=== PATIENT | male | born 1985 | race Native Hawaiian/Other Pacific Islander ===

== ENCOUNTER 2016-11-14 10:22 | Observation (INO) | payer OTHER ==
--- NOTE | 2016-11-14 11:05 | C.PDOC ---
History Of Present Illness 30 yr old male presents to the ER for removal of his T-tube which was placed [address] Fidel Bates. Patient reports history of appendectomy surgery. Patient states he spoke to someone upstairs named "Soumya" who suggested to come to the ED for removal. Patient reports he was on antibiotics but never on any pain medications. Patient denies any signs of infection, erythema, discharge from the tube site. Denies fever, chest pain, SOB, nausea, vomiting, abdominal pain, diarrhea, dysuria, back pain, weakness or numbness. Time Seen by Provider: 11/14/16 10:35 Chief Complaint (Nursing): Medical Clearance History Per: Patient History/Exam Limitations: no limitations Onset/Duration Of Symptoms: Other (T-tube placed 5 weeks ago) Current Symptoms Are (Timing): Still Present Past Medical History Reviewed: Historical Data, Nursing Documentation, Vital Signs Vital Signs: Last Vital Signs Temp 97.8 F 11/14/16 13:59 Pulse 80 11/14/16 13:59 Resp 18 11/14/16 13:59 BP 112/75 11/14/16 13:59 Pulse Ox 99 11/14/16 13:59 - Medical History PMH: Gall Bladder Disease Surgical History: Appendectomy (more than 10 years ago) - [facility] Procedures DRAINAGE OF GALLBLADDER WITH DRAINAGE DEVICE, PERC APPROACH (10/09/16) Family History: States: No Known Family Hx - Social History Hx Alcohol Use: Yes Hx Substance Use: No Review Of Systems Except As Marked, All Systems Reviewed And Found Negative. Constitutional: Negative for: Fever Cardiovascular: Negative for: Chest Pain Respiratory: Negative for: Shortness of Breath Gastrointestinal: Positive for: Other (T-Tube present). Negative for: Nausea, Vomiting, Abdominal Pain, Diarrhea Genitourinary: Negative for: Dysuria Musculoskeletal: Negative for: Back Pain Neurological: Negative for: Weakness, Numbness Physical Exam - Physical Exam Appears: Non-toxic, No Acute Distress Skin: Warm, Dry, No Rash Head: Atraumatic, Normacephalic Cardiovascular: Rhythm Regular, No Murmur Respiratory: Normal Breath Sounds, No Rales, No Rhonchi, No Stridor, No Wheezing Gastrointestinal/Abdominal: Normal Exam, Soft, No Tenderness, No Guarding, No Rebound, Other (T-Tube site - Dressing is clean, dry and in intact.) Extremity: Normal ROM Neurological/Psych: Oriented x3, Normal Speech, Normal Motor ED Course And Treatment O2 Sat by Pulse Oximetry: 96 Medical Decision Making Medical Decision Making: Case discussed with dr Bates, he will be in to evaluate tube in IR Pt made aware of this Post procedure, showing multiple stones still present, tube left in and pt refered to GI by dr Bates Pt stable for discharge Disposition - Disposition Disposition: HOME/ ROUTINE Disposition Time: 13:16 Condition: GOOD - Clinical Impression Clinical Impression: Medical assessment - Scribe Statement The provider has reviewed the documentation as recorded by the Andre Adan Provider Attestation: All medical record entries made by the Rashelibradha were at my direction and personally dictated by me. I have reviewed the chart and agree that the record accurately reflects my personal performance of the history, physical exam, medical decision making, and the department course for this patient. I have also personally directed, reviewed, and agree with the discharge instructions and disposition.
--- NOTE | 2016-11-14 12:36 | PCM.SURG1 ---
Surgeon's Initial Post Op Note - Surgeon's Notes Surgeon: Fidel Bates MD Dielectric Testing Machine Operator: None Type of Anesthesia: None Pre-Operative Diagnosis: Cholecystitis, cholelithiasis. Operative Findings: CHolestogram performed through cholecystostomy tube showed significant GB stones. There is flow into the CBD. A round filling defect in the distal CBD is believed to be a gallstone. It is not completely obstructive. Post-Operative Diagnosis: Cholelithiasis. Operation Performed: Cholecystostogram. Specimen/Specimens Removed: Bile aspirated at end of procedure. Estimated Blood Loss: EBL {In ML}: 0 Drains Used: No Drains, Jamie Rodriguez Post-Op Condition: Fair Date of Surgery/Procedure: 11/14/16 Time of Surgery/Procedure: 12:30
[2016-11-14 14:01] VITALS: BP 112/75; PULSE 80; RESP 18; TEMP 97.8
[2016-11-16 12:22] VITALS: O2SAT 96
== END 2016-11-14 13:19 | disposition home or self-care (01) ==
LOC: C.ER 10:22 → C.9OBSV 12:05
PROVIDERS: ADMIT Emergency Medicine; ATTEND Emergency Medicine
DX: K80.10 Calculus of gallbladder with chronic cholecystitis without obstruction (principal)
CPT/HCPCS: 74290; 99282; G0378

== ENCOUNTER 2016-12-08 07:50 | Day surgery (SDC) | payer OTHER ==
[2016-12-08] MEDS ORDERED: Indomethacin 50 MG Suppository PR ONE (09:16)
[2016-12-08] MEDS ORDERED: Glucagon Recombinant 1 mg Inj ONE (09:17)
[2016-12-08] MEDS ORDERED: Iohexol 240 (50 ml) ONE (09:18)
[2016-12-08 09:21] VITALS: BMI 37.0
[2016-12-08] MEDS ORDERED: cefTRIAXone IV 1 gm in Dextros 50 ML IVPB ONE (10:08)
[2016-12-08] MEDS ORDERED: Succinylcholine Chloride 20 mg/ml Syr (5 ml) IV ONE (10:39)
[2016-12-08] MEDS ORDERED: Rocuronium 10 mg/ml (5 ml) ONE (10:39)
[2016-12-08] MEDS ORDERED: cefTRIAXone (Rocephin) 1 gm Inj IVPB ONE (10:49)
--- NOTE | 2016-12-08 12:20 | CP.SDSHP ---
Same Day Surgery H & P - History Proposed Procedure: ERCP Pre-Op Diagnosis: Choledocholithiasis - Previous Medical/Surgical History Endocrine/Metabolic: Obesity Previous Surgical History: Cholecystostomy tube - Allergies Allergies: Allergies No Known Allergies Allergy (Verified 11/14/16 10:45) - Physical Exam General Appearance: nl Vital Signs: Vital Signs 12/08/16 12/08/16 12/08/16 09:23 10:29 11:18 Temperature 98.9 F 99 F 99 F Pulse Rate 100 H 109 H 105 H Respiratory 20 13 13 Rate Blood Pressure 138/88 120/77 121/72 O2 Sat by Pulse 98 98 99 Oximetry Mental Status: Alert & Oriented x3 Neuro: WNL Heart: WNL Lungs: WNL GI: WNL - {Optional Preform as Required} Abdomen: WNL - Impression Impression: choledocholithiasis Pt. Evaluated Today:Candidate for Anesthesia & Procedure: Yes - Date & Time Date: 12/08/16 Time: 12:19 Short Stay Discharge - Short Stay Discharge Admitting Diagnosis/Reason for Visit: CHOLECYSTITIS Disposition: HOME/ ROUTINE
[2016-12-08 12:27] VITALS: TEMP 98.4
[2016-12-08 13:31] VITALS: BP 118/71; PULSE 86; RESP 18; O2SAT 98
--- NOTE | 2016-12-08 16:59 | RAD ---
PROCEDURE: Fluoroscopy up to 1 hr. HISTORY: CBD STONE COMPARISON: None TECHNIQUE: Standard protocol for this study/examination. FINDINGS: Total fluoroscopic time (continuous mode) utilized during the procedure: 54.1 seconds. Submitted images from the current procedure: 5.0 IMPRESSION: Less than 1 hr fluoroscopic time utilized during performance of the procedure.
== END 2016-12-08 13:27 | disposition home or self-care (01) ==
LOC: C.ENDO 07:50
PROVIDERS: ATTEND Internal Medicine
DX: K80.50 Calculus of bile duct without cholangitis or cholecystitis without obstruction (principal); E66.9 Obesity, unspecified; Z68.37 Body mass index [BMI] 37.0-37.9, adult; Z96.89 Presence of other specified functional implants
CPT/HCPCS: 43264; 76000; C1726; J0696; J1610; Q9966

== ENCOUNTER 2017-01-17 07:52 | Day surgery (SDC) | payer OTHER ==
[2017-01-01 11:33] VITALS: BMI 36.5
[2017-01-17] MEDS ORDERED: Propofol 10 mg/ml Inj (20 ML) ONE (11:41)
[2017-01-17] MEDS ORDERED: Midazolam 2 MG/2 ML VIAL ONE (11:41)
[2017-01-17] MEDS ORDERED: Lactated Ringer's 1,000 ML IV ONE ×4 (11:45→13:50)
[2017-01-17] MEDS ORDERED: Lidocaine 1% Inj (20ml) ONE (11:48)
[2017-01-17] MEDS ORDERED: Bupivacaine/Epi 0.25%-1:200,000 10 ml PF inj IJ ONE (11:48)
[2017-01-17] MEDS ORDERED: ceFAZolin IV 2 gm in Dextrose 1 GM/50 ML BAG IVPB ONE (11:48)
[2017-01-17] MEDS ORDERED: Neostigmine Methylsulfate 3mg/3ml Syringe IV ONE (13:16)
[2017-01-17] MEDS ORDERED: Morphine 4 MG/ML VIAL ONE (13:29)
[2017-01-17] MEDS ORDERED: HYDROmorphone 0.5 mg/0.5 ml ISec IVP PRN (13:34)
[2017-01-17] MEDS ORDERED: Oxycodone/Acetaminophen 5/325 mg Tab PO PRN (13:55)
--- NOTE | 2017-01-17 13:55 | PCM.SURG1 ---
Surgeon's Initial Post Op Note - Surgeon's Notes Surgeon: Dr. Justice Carpenter Supervisor: Kayla Mccann Type of Anesthesia: General Endo, Local Pre-Operative Diagnosis: acute cholecystitis s/p cholecystostomy tube Operative Findings: see operative report Post-Operative Diagnosis: same Operation Performed: laparoscopic cholecystectomy, extensive lysis of adhesions , and removal of cholecystostomy tube Specimen/Specimens Removed: cholecystostomy tube, gallbladder Estimated Blood Loss: EBL {In ML}: 25 Blood Products Given: N/A Drains Used: No Drains Post-Op Condition: Good Date of Surgery/Procedure: 01/17/17 Time of Surgery/Procedure: 13:54
[2017-01-17 15:53] VITALS: O2SAT 97
[2017-01-17 17:12] VITALS: BP 125/71; PULSE 84; RESP 20; TEMP 97.9
--- NOTE | 2017-01-18 00:02 | OP ---
PROCEDURE DATE: 01/17/2017 PREOPERATIVE DIAGNOSES: 1. Acute on chronic cholecystitis. 2. Status post cholecystostomy tube. 3. Morbid obesity. 4. Possible postinfectious adhesion. POSTOPERATIVE DIAGNOSES: 1. Acute on chronic cholecystitis. 2. Status post cholecystostomy tube. 3. Morbid obesity. 4. Possible postinfectious adhesion. PROCEDURE DONE: 1. Laparoscopic cholecystectomy. 2. Laparoscopic extensive lysis of adhesion. 3. Removal of the cholecystostomy tube. SURGEON: Kota Justice MD COMMUNICATIONS CONSULTANT: FAHAD Painter. Kayla was present from the beginning to the end of the procedure, helped in the prepping and draping, and during the dissection and the closure of the wound. SECOND COMMUNICATIONS CONSULTANT: Annemarie Malin, PGY-1 resident. ANESTHESIA: General endotracheal tube anesthesia. ESTIMATED BLOOD LOSS: Around 50 mL. DRAINS: None. PATHOLOGY: 1. Gallbladder with gallstone was sent for the pathology. 2. Cholecystostomy tube. COMPLICATIONS: None. INTRAOPERATIVE FINDINGS: The patient had extensive postinfectious adhesion. The patient also had a cholecystostomy tube from previous admission. INTRAOPERATIVE STEPS: This 31-year-old male who was diagnosed with acute on chronic cholecystitis and the patient had a cholecystostomy tube placed in previous admission due to extensive cholecystitis. The patient was consented for the laparoscopic cholecystectomy, possible open. Brought to the OR, placed supine on the operating table. After induction of the anesthesia, abdomen was prepped and draped in the usual sterile fashion. Supraumbilical transverse 1.5 cm incision was made. After incising skin and subcutaneous tissue, the fascia was incised in line of incision. [place] port was placed, pneumo was created. Another two 5 mm ports were placed in midclavicular and anterior axillary line and another 12 mm port was placed in the midline below the costal margin and another 5 mm port was placed in the left lower quadrant for the fan retractor, and after that, the grasper and dissector was introduced. The patient found to have extensive postinfectious adhesion. The cholecystostomy tube was excised and part of the tube was removed and it was sent off the table for the pathology. Now, the gallbladder was identified and it was retracted cranially. Calot's triangle dissection was done. Cystic duct and cystic artery was identified. The patient found to have extensive postinfectious adhesion and it took approximately 45-60 minutes extra for the routine procedure. The fan retractor was used to retract the duodenum and the phlegmonous mass in the right upper quadrant. After that, the cystic duct and cystic artery was identified and the critical view of the safety was seen. The cystic artery was clipped and cut, and the cystic duct was stapled with the EVELYN and the gallbladder was dissected free from the gallbladder fossa, taken in EndoCatch bag, taken out through the umbilical port site and sent to the table for the pathology. There was proper hemostasis in each and every part of the procedure. The suction irrigation of the gallbladder fossa and the periappendicular, gallbladder fossa and perihepatic area was done. After proper hemostasis, all the ports were taken out under vision. Pneumo was deflated. Umbilical port site was closed in 2 layers, the fascia with 0 Vicryl interrupted suture, skin with a 4-0 Monocryl and dry sterile dressing was applied. The patient tolerated the procedure well. Count of instruments and gauze was correct. There was no apparent complication. Kota Justice MD cc: [id number] TT: 01/18/2017 00:01:52 balaji STANLEY
== END 2017-01-17 17:00 | disposition home or self-care (01) ==
LOC: C.SDS 07:52
PROVIDERS: ATTEND Surgery Surgical Critical Care
DX: K80.12 Calculus of gallbladder with acute and chronic cholecystitis without obstruction (principal); K82.8 Other specified diseases of gallbladder; E66.01 Morbid (severe) obesity due to excess calories; Z68.36 Body mass index [BMI] 36.0-36.9, adult
CPT/HCPCS: 47562; 82948; 88300; 88304; J0690; J1100; J1170; J2250; J2270; J2405; J2704; J2710; J3010; J7120